=== PATIENT | female | born 1985 | race Caucasian/White ===

== ENCOUNTER → 2017-02-20 | Outpatient (CLI) | payer OTHER ==
[~2017-02-20] MED LIST: PRENTAB26 PO
== END | disposition home or self-care (01) ==
LOC: C.PAPS 11:17
PROVIDERS: ATTEND Obstetrics & Gynecology
DX: Z12.4 Encounter for screening for malignant neoplasm of cervix (principal); R87.612 Low grade squamous intraepithelial lesion on cytologic smear of cervix (LGSIL)

== ENCOUNTER → 2017-03-16 | Outpatient (CLI) | payer OTHER | END | disposition home or self-care (01) | LOC: C.PATHSPEC 13:06 | PROVIDERS: ATTEND Obstetrics & Gynecology | DX: N87.0 Mild cervical dysplasia (principal) ==

== ENCOUNTER 2017-07-21 18:19 | Emergency (ER) | payer OTHER ==
[~2017-07-21] VITALS: Ht 160 cm; Wt 60.6 kg
[2017-07-21 18:36] VITALS: Ht 160 cm; Wt 60.6 kg
[2017-07-21] MEDS ORDERED: IBUPROFEN 600 MG TAB PO STA (18:50)
[2017-07-21] MEDS ORDERED: SODIUM CHLORIDE 0.9% 1000ML 1,000 ML IV STA (18:50)
[2017-07-21] MEDS ORDERED: ACETAMINOPHEN 500 MG TAB PO STA (18:50)
[2017-07-21] MEDS ORDERED: ONDANSETRON INJ 2 MG/ML 2 ML VIAL IV STA (18:50)
[2017-07-21] MEDS ORDERED: BENZONATATE 100MG CAP PO ONE (19:00)
--- NOTE | 2017-07-21 19:00 | EMERGENCY ROOM VISIT NOTE ---
History Report prepared by Sahra: Marek Kaufman Under the Supervision of: Dr. Nikolai Proctor M.D. First contact with patient: 18:44 Chief Complaint: FLU LIKE SX Stated Complaint: FEVER, CHILLS, SWEATS, ACHES, COUGHING UP MUCUS History of Present Illness The patient is a 32 year old female who presents to the Emergency Room with complaints of worsening flu-like symptoms that began 5 days ago. Patient has associated symptoms of a productive cough, chills, body aches, joint aches, fever, sore throat, fatigue, and ear discomfort. She states her ears feel "pressurized", but not painful. She adds that she had a syncopal episode yesterday. She states she had diarrhea 4 days ago--this has resolved. She states she has been drinking fluids regularly. She denies getting a flu shot this year. She states her two kids at home are "just as sick as she is". She adds that they both recently tested negative for the flu. Patient adds that she has taken Motrin and Tylenol but it has not relieved her symptoms. She adds that she took Mucinex 2 hours ago. Patient denies painful urination. She states she has not been urinating as much as usual. She states it is unlikely that she is . She adds that she is on control. Patient denies a history of lung, liver, kidney, or spleen problems. Patient adds that an complaint investigations officer was diagnosed with bronchitis recently. Pertinent past medical history includes bipolar disorder. She states that she takes Lamictal. Source of History: patient Onset: 5 days ago Timing: worsening Associated Symptoms: + chills, + sorethroat, + cough (Productive), + fatigue Note: Patient has body aches, joint aches, and ear discomfort. Review of Systems See HPI for pertinent positives & negatives. A total of 10 systems reviewed and were otherwise negative. 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 Social History Smoking Status: Never Smoker Alcohol Use: occasionally Housing Status: lives with family Occupation Status: employed Current/Historical Medications Scheduled Control Pills ( Control Pills), 1 TAB PO DAILY Lamotrigine (Lamictal), 200 MG PO HS Scheduled PRN Benzonatate (Tessalon Perles), 100-200 MG PO TID PRN for Cough Allergies Coded Allergies: No Known Allergies (Verified Allergy, Unknown, 03/19/06) Physical Exam Vital Signs Date Time Temp Pulse Resp B/P (MAP) Pulse Ox O2 Delivery O2 Flow Rate FiO2 07/21/17 20:56 85 18 101/59 99 07/21/17 19:59 37.9 89 18 96/48 99 Room Air 07/21/17 18:36 39.0 100 18 102/63 99 Room Air Physical Exam GENERAL: Patient is in no acute distress. HEENT: No acute trauma, normocephalic atraumatic, mucous membranes moist, moderate nasal congestion, no scleral icterus, TMs clear bilaterally, no throat erythema or exudate. NECK: No stridor, no adenopathy, no meningismus, trachea is midline. LUNGS: Clear to auscultation bilaterally, no wheeze, no rhonchi, breath sounds equal, wet cough noted. HEART: Without murmurs gallops or rubs, regular rate and rhythm. ABDOMEN: Soft, nontender, bowel sounds positive, no hernias, no peritonitis. EXTREMITIES: No cyanosis or edema, full range of motion of all the joints without pain or difficulty, no signs for acute trauma. NEUROLOGIC: Oriented x 3, no acute motor or sensory deficits, no focal weakness. SKIN: No rash, no jaundice, no diaphoresis. Medical Decision & Procedures ER Provider Diagnostic Interpretation: Radiology results as stated below per my review and radiologist interpretation: CHEST ONE VIEW PORTABLE HISTORY: cough, fever COMPARISON: None. FINDINGS: The lungs are clear. Cardiac silhouette is normal in size. No pleural effusions. No pneumothorax. Prior internal fixation of an old left clavicle fracture. The hardware is intact. IMPRESSION: No acute process. Electronically signed by: Micah Velasquez M.D. 07/21/2017 7:07 PM Laboratory Results 07/21/17 19:10 07/21/17 19:10 Test 07/21/17 19:10 Red Blood Count 4.00 M/uL (4.2-5.4) Mean Corpuscular Volume 91.3 fL (80-100) Mean Corpuscular Hemoglobin 32.3 pg (25-34) Mean Corpuscular Hemoglobin Concent 35.3 g/dl (32-36) RDW Standard Deviation 41.6 fL (36.4-46.3) RDW Coefficient of Variation 12.3 % (11.5-14.5) Mean Platelet Volume 10.3 fL (7.4-10.4) Anion Gap 6.0 mmol/L (3-11) Est Creatinine Clear Calc Drug Dose 85.0 ml/min Estimated GFR () 114.7 Estimated GFR (Non- 98.9 BUN/Creatinine Ratio 8.3 (10-20) Calcium Level 8.6 mg/dl (8.5-10.1) Laboratory results reviewed by me. Medications Administered Medications (Trade) Dose Ordered Sig/Gordon Route Start Time Stop Time Status Last Admin Dose Admin Ibuprofen (Motrin Tab) 600 mg NOW STAT PO 07/21/17 18:50 07/21/17 18:54 DC 07/21/17 19:03 600 MG Acetaminophen (Tylenol Tab) 1,000 mg NOW STAT PO 07/21/17 18:50 07/21/17 18:54 DC 07/21/17 19:04 1,000 MG Sodium Chloride 1,000 ml @ 999 mls/hr Q1H1M STAT IV 07/21/17 18:50 07/21/17 19:50 DC 07/21/17 19:04 999 MLS/HR Ondansetron HCl (Zofran Inj) 4 mg NOW STAT IV 07/21/17 18:50 07/21/17 18:54 DC 07/21/17 19:03 4 MG Benzonatate (Tessalon Perles Cap) 100 mg NOW ONCE PO 07/21/17 19:00 07/21/17 19:01 DC 07/21/17 19:03 100 MG ED Course 1843: The patient was evaluated in room C7. A complete history and physical exam was performed. 1850: Zofran Inj 4mg IV, Sodium Chloride 1000 ml @ 999 mls/hr IV, Acetaminophen 1000mg PO, Motrin Tab 600mg PO 1900: Benzonatate 100mg PO 2020: Reevaluated the patient. Discussed results and discharge instructions. She verbalized understanding and agreement. The patient is ready for discharge. Medical Decision Differential Diagnosis: Influenza or flu-like illness, dehydration, otitis media, tonsillitis, sinusitis , and pneumonia. There is no leukocytosis or concerning anemia. No significant electrolyte abnormality or kidney failure. Chest film does not show pneumonia. The patient received IV saline, oral Tessalon, oral Motrin and oral Tylenol. She received IV Zofran. The patient feels markedly improved. She appears to have a flulike illness. She is not a candidate for Tamiflu as she has been sick for 5 days. She is not toxic. Her fever has decreased since being treated here, her tachycardia has improved. She will be discharged with Tessalon pearls for cough, Motrin/ Tylenol for fever and aches, hydration and rest will be encouraged. If worsening, she can return. Medication Reconcilliation Current Medication List: was personally reviewed by me Blood Pressure Screening Patient's blood pressure: Normal blood pressure Blood pressure disposition: Did not require urgent referral Impression Primary Impression: Influenza-like illness Scribe Attestation The scribe's documentation has been prepared under my direction and personally reviewed by me in its entirety. I confirm that the note above accurately reflects all work, treatment, procedures, and medical decision making performed by me. Departure Information Dispostion Home / Self-Care Prescriptions Benzonatate (TESSALON PERLES) 100 Mg Cap 100-200 MG PO TID Y for Cough, #20 CAP Prov: Nikolai Proctor M.D. 07/21/17 Referrals No Doctor, Assigned (PCP) Forms HOME CARE DOCUMENTATION FORM, IMPORTANT VISIT INFORMATION Patient Instructions My [facility] Additional Instructions tessalon perles 1-2 tab up to 3x per day for cough rest fluids motrin and or tylenol for aches and fever return if worsening imaging and lab testing was all ok
--- NOTE | 2017-07-21 19:09 | DIAGNOSTIC IMAGING REPORT ---
CHEST ONE VIEW PORTABLE HISTORY: cough, fever COMPARISON: None. FINDINGS: The lungs are clear. Cardiac silhouette is normal in size. No pleural effusions. No pneumothorax. Prior internal fixation of an old left clavicle fracture. The hardware is intact. IMPRESSION: No acute process. Electronically signed by: Micah Velasquez M.D. 07/21/2017 7:07 PM Dictated Date/Time: 07/21/2017 7:07 PM
[2017-07-21 19:21] LABS: HEMATOCRIT 36.5 % (37-47); HEMOGLOBIN 12.9 g/dL (12.0-16.0); MEAN CELL VOLUME 91.3 fL (80-100); MEAN CORPUSCULAR HEMOGLOBIN 32.3 pg (25-34); MEAN CORPUSCULAR HGB CONC 35.3 g/dl (32-36); MEAN PLATELET VOLUME 10.3 fL (7.4-10.4); PLATELET COUNT 151 K/uL (130-400); RED CELL DISTRIBUTION WIDTH CV 12.3 % (11.5-14.5); RED CELL DISTRIBUTION WIDTH SD 41.6 fL (36.4-46.3); WHITE BLOOD COUNT 6.87 K/uL (4.8-10.8)
[2017-07-21 19:39] LABS: CALCIUM 8.6 mg/dl (8.5-10.1); CREATININE 0.8 mg/dl (0.60-1.20); POTASSIUM 3.7 mmol/L (3.5-5.1)
[2017-07-21 19:59] VITALS: TEMP 37.9
[2017-07-21] MEDS ORDERED: LAMO200T35 PO (20:36)
[2017-07-21] MEDS ORDERED: BCPILLS PO (20:36)
[2017-07-21] MEDS ORDERED: BENZ100C18 PO (20:46)
[2017-07-21 20:56] VITALS: BP 101/59; PULSE 85; O2SAT 99
== END 2017-07-21 20:57 | disposition home or self-care (01) ==
LOC: C.EDB 18:20 → C.EDC 20:57
DX: R05 Cough (principal); M25.50 Pain in unspecified joint; R50.9 Fever, unspecified; J02.9 Acute pharyngitis, unspecified; R53.83 Other fatigue; F31.9 Bipolar disorder, unspecified; Z79.899 Other long term (current) drug therapy

== ENCOUNTER → 2017-09-06 | Outpatient (CLI) | payer OTHER ==
[~2017-09-06] MED LIST changes: +BCPILLS PO; +LAMO200T35 PO; -PRENTAB26 PO
== END | disposition home or self-care (01) ==
LOC: C.LABBFT 16:38
PROVIDERS: ATTEND Psychiatry & Neurology Psychiatry
DX: Z79.899 Other long term (current) drug therapy (principal)

== ENCOUNTER → 2017-10-02 | Outpatient (CLI) | payer OTHER | END | disposition home or self-care (01) | LOC: C.PAPS 12:06 | PROVIDERS: ATTEND Obstetrics & Gynecology | DX: N87.0 Mild cervical dysplasia (principal); R87.610 Atypical squamous cells of undetermined significance on cytologic smear of cervix (ASC-US) ==

== ENCOUNTER → 2017-10-02 | Outpatient (CLI) | payer OTHER | END | disposition home or self-care (01) | LOC: C.PATHSPEC 10:51 | PROVIDERS: ATTEND Obstetrics & Gynecology | DX: N87.0 Mild cervical dysplasia (principal); R87.610 Atypical squamous cells of undetermined significance on cytologic smear of cervix (ASC-US) ==

== ENCOUNTER → 2018-01-29 | Outpatient (CLI) | payer OTHER | END | disposition home or self-care (01) | LOC: C.LABBFT 07:31 | PROVIDERS: ATTEND Psychiatry & Neurology Psychiatry | DX: Z79.899 Other long term (current) drug therapy (principal); J02.9 Acute pharyngitis, unspecified ==

== ENCOUNTER 2021-10-09 08:15 | Inpatient (IN) ==
--- NOTE | 2021-10-09 08:50 | Emergency Department Note ---
History of Present Illness General Chief complaint: Cardiac Assessment Stated complaint: SOB,LT SIDE CHEST PAIN Time Seen by Provider: 10/09/21 08:26 History of Present Illness Maximum Pain Intensity: 8 This 36-year-old female patient presents to the emergency department today for evaluation of left-sided chest pain. The patient is 4 days status post bronchoscopy. She states she was feeling sore and having some chest pain and shortness of breath on Sunday and , but was beginning to feel better on Sunday. Yesterday, she developed worsening chest pain and shortness of br eath which she states felt similar in nature to what she experienced immediately after the procedure. She states she is still coughing up some dark brown blood which she was told is to be expected. No bright red blood. She has not had a fever. She denies any abdominal pain, nausea, vomiting. The pain is in the left lateral anterior region of the chest. She rates her pain 8/10 describes it as aching and sharp. She has not taken any medications for her symptoms. The pain is better with sitting or standing upright, worsens with lying flat. Home Medications Medication Instructions Recorded Confirmed Type lamotrigine 200 mg tablet 200 mg PO HS tab 08/08/19 10/05/21 History lorazepam 1 mg tablet 0.5 - 1 mg PO HS PRN #30 tab 08/08/19 10/05/21 History risperidone 0.5 mg tablet 0.5 mg PO HS tab 08/08/19 10/05/21 History norethindrone 1.5 mg-ethinyl 1 tab PO QAM 05/11/21 10/05/21 History estradiol 30 mcg(21)/iron 75 mg(7) tablet (Dmitry Fe 1.5/30 (28)) famotidine 20 mg tablet 20 mg PO HS #30 tab 08/16/21 10/05/21 Rx pantoprazole 40 mg tablet,delayed 40 mg PO QAM 09/29/21 10/05/21 History release Allergies Allergy/AdvReac Type Severity Reaction Status Date / Time No Known Allergies Allergy Unknown Verified 10/05/21 09:41 Past Med/Surg History Medical History (Updated 10/10/21 @ 08:49 by Froylan Espinoza MD) Anxiety Asthma Bipolar disorder Depression Esophageal reflux Iatrogenic pneumothorax Lymphadenopathy Mild dysplasia of cervix (MIREYA I) Multiple pulmonary nodules Panic disorder Surgical History H/O colonoscopy History of colposcopy with cervical biopsy History of esophagogastroduodenoscopy (EGD) History of open reduction and internal fixation (ORIF) procedure left clavicle fx--hardware in place History of tooth extraction History of wisdom tooth extraction S/P ovarian cystectomy Family History Mother Substance abuse Depression Suicide Father Engel esophagus Hypertension Other Anxiety disorder Arthritis Asthma Bipolar disorder Cataract Colorectal cancer Esophageal reflux Gallbladder disease Heart disease Hypothyroidism Kidney disease Murmur, cardiac No family history of adverse response to anesthesia Ovarian cyst Thyroid disorder Denies family history of Breast cancer Social History Smoking Status: Never smoker Second Hand Exposure: No; Do You Dip or Chew Tobacco: No; Tobacco Cessation Education Requested by Patient: No Hx Alcohol Use: Yes Alcohol type: wine Alcohol Intake Frequency: 4 or More x per/Week Hx Substance Use: No Preferred Language: Gabonese Communication Ability: Effective Rail Manager Required: No Beliefs That Will Affect Care: None marital status: Current Living Situation: Significant Other Current Living Situation Comment: Lives with and 2 kids current occupational status: employed current occupation: [employer] Other Information That Helps Us Care for You: No Feels Safe at Home: Yes Safety Concerns: Feels Safe At This Time caffeine: Yes Dental Care, Regularly: Yes Physical Activity Frequency: 1-2 Times per Week Seatbelt Use: always Sunscreen Use: Yes Assistive Devices: Glasses Review of Systems A total of 10 systems reviewed and were otherwise negative Physical Exam Vital Signs Vital Signs - 24 hr 10/09/21 08:18 10/09/21 08:30 10/09/21 08:34 Temperature 36.1 C L Temperature Source Temporal Artery Scan Pulse Rate 81 79 Pulse Rate [Apical] Pulse Rate from SpO2 Sensor 79 Respiratory Rate 20 17 Respiratory Effort / Characteristics Spontaneous Accessory Muscle Use Labored Respiratory Depth Normal Blood Pressure 112/76 Blood Pressure [Right Arm] Blood Pressure Mean 88 Blood Pressure Mean [Right Arm] Pulse Oximetry 99 97 99 Oxygen Delivery Method Room Air Room Air Sepsis Recent Fever Within 48 Hours No Sepsis New/Unexplained Change in Mental Status No Sepsis Action Taken by Nursing No Action Required 10/09/21 08:36 10/09/21 08:45 10/09/21 08:47 Temperature Temperature Source Pulse Rate 76 72 Pulse Rate [Apical] 74 Pulse Rate from SpO2 Sensor Respiratory Rate 23 20 15 Respiratory Effort / Characteristics Respiratory Depth Blood Pressure 111/71 Blood Pressure [Right Arm] 111/71 Blood Pressure Mean 84 Blood Pressure Mean [Right Arm] 84 Pulse Oximetry 99 Oxygen Delivery Method Room Air Sepsis Recent Fever Within 48 Hours Sepsis New/Unexplained Change in Mental Status Sepsis Action Taken by Nursing 10/09/21 09:09 10/09/21 09:15 10/09/21 09:30 Temperature Temperature Source Pulse Rate 71 87 81 Pulse Rate [Apical] Pulse Rate from SpO2 Sensor 71 82 84 Respiratory Rate 16 24 15 Respiratory Effort / Characteristics Respiratory Depth Blood Pressure 115/70 121/87 Blood Pressure [Right Arm] Blood Pressure Mean 85 98 Blood Pressure Mean [Right Arm] Pulse Oximetry 99 99 98 Oxygen Delivery Method Sepsis Recent Fever Within 48 Hours Sepsis New/Unexplained Change in Mental Status Sepsis Action Taken by Nursing 10/09/21 09:45 10/09/21 10:00 10/09/21 10:14 Temperature Temperature Source Pulse Rate 74 79 83 Pulse Rate [Apical] Pulse Rate from SpO2 Sensor 74 75 83 Respiratory Rate 20 18 17 Respiratory Effort / Characteristics Respiratory Depth Blood Pressure 124/78 128/89 Blood Pressure [Right Arm] Blood Pressure Mean 93 102 Blood Pressure Mean [Right Arm] Pulse Oximetry 98 97 97 Oxygen Delivery Method Sepsis Recent Fever Within 48 Hours Sepsis New/Unexplained Change in Mental Status Sepsis Action Taken by Nursing 10/09/21 10:15 10/09/21 10:20 10/09/21 10:22 Temperature Temperature Source Pulse Rate 89 47 L 54 L Pulse Rate [Apical] Pulse Rate from SpO2 Sensor 87 48 L 53 L Respiratory Rate 21 15 17 Respiratory Effort / Characteristics Respiratory Depth Blood Pressure 71/46 L 79/48 L Blood Pressure [Right Arm] Blood Pressure Mean 54 58 Blood Pressure Mean [Right Arm] Pulse Oximetry 95 95 92 Oxygen Delivery Method Sepsis Recent Fever Within 48 Hours Sepsis New/Unexplained Change in Mental Status Sepsis Action Taken by Nursing 10/09/21 10:24 10/09/21 10:29 10/09/21 10:30 Temperature Temperature Source Pulse Rate 56 L 49 L 50 L Pulse Rate [Apical] Pulse Rate from SpO2 Sensor 56 L 49 L Respiratory Rate 23 20 15 Respiratory Effort / Characteristics Respiratory Depth Blood Pressure 103/57 L 79/40 L 78/45 L Blood Pressure [Right Arm] Blood Pressure Mean 72 53 56 Blood Pressure Mean [Right Arm] Pulse Oximetry 95 98 Oxygen Delivery Method Sepsis Recent Fever Within 48 Hours Sepsis New/Unexplained Change in Mental Status Sepsis Action Taken by Nursing 10/09/21 10:31 10/09/21 10:37 10/09/21 10:45 Temperature Temperature Source Pulse Rate 51 L 65 67 Pulse Rate [Apical] Pulse Rate from SpO2 Sensor 52 L 68 67 Respiratory Rate 15 19 17 Respiratory Effort / Characteristics Respiratory Depth Blood Pressure 88/50 L 97/58 L Blood Pressure [Right Arm] Blood Pressure Mean 62 71 Blood Pressure Mean [Right Arm] Pulse Oximetry 98 99 99 Oxygen Delivery Method Sepsis Recent Fever Within 48 Hours Sepsis New/Unexplained Change in Mental Status Sepsis Action Taken by Nursing 10/09/21 10:48 10/09/21 11:00 10/09/21 11:15 Temperature Temperature Source Pulse Rate 62 65 68 Pulse Rate [Apical] Pulse Rate from SpO2 Sensor 61 64 67 Respiratory Rate 15 17 19 Respiratory Effort / Characteristics Respiratory Depth Blood Pressure 106/67 109/68 Blood Pressure [Right Arm] Blood Pressure Mean 80 81 Blood Pressure Mean [Right Arm] Pulse Oximetry 100 100 100 Oxygen Delivery Method Sepsis Recent Fever Within 48 Hours Sepsis New/Unexplained Change in Mental Status Sepsis Action Taken by Nursing 10/09/21 11:35 Temperature Temperature Source Pulse Rate 64 Pulse Rate [Apical] Pulse Rate from SpO2 Sensor 64 Respiratory Rate 27 H Respiratory Effort / Characteristics Respiratory Depth Blood Pressure 116/74 Blood Pressure [Right Arm] Blood Pressure Mean 88 Blood Pressure Mean [Right Arm] Pulse Oximetry 100 Oxygen Delivery Method Sepsis Recent Fever Within 48 Hours Sepsis New/Unexplained Change in Mental Status Sepsis Action Taken by Nursing VITALS: Vitals are noted on the nurse's note and reviewed by myself. Vital signs stable. GENERAL: This is a 36-year-old white for, in no acute distress, nondiaphoretic, well-developed well-nourished. SKIN: The skin was without rashes, erythema, edema, or bruising. There is no tenting of the skin. Capillary refill less than 2 seconds. HEAD: Normocephalic atraumatic. EYES: Conjunctivae without injection, sclerae without icterus. NECK: Supple without nuchal rigidity. No lymphadenopathy. Cervical spine is nontender. No JVD. HEART: Regular rate and rhythm without murmurs gallops or rubs. LUNGS: Clear to auscultation bilaterally without wheezes, rales or rhonchi. No retractions or accessory muscle use. ABDOMEN: Positive bowel sounds x 4. Soft, nontender, without masses or organom egaly. Davis sign negative. No guarding or rebound tenderness. MUSCULOSKELETAL: No muscle atrophy, erythema, or edema noted. Full range of motion without joint tenderness in all extremities. No tenderness to palpation. Normal gait. Strength 5/5 throughout. NEURO: Patient was alert and oriented to person place and time. No focal neurological deficits. Course Course The patient was seen and evaluated as above. Previous medical records reviewed. An order was placed for continuous cardiac monitoring. The monitor shows a normal sinus rhythm at a rate of 81 bpm. IV access obtained, labs drawn. Imaging performed and reviewed by myself and radiologist as noted. Labs reviewed by myself. I discussed the findings with the patient at bedside. I consulted with Dr. Boland, configuration specialist to perform the procedure. He did agree to see the patient in the emergency department and place a chest tube. Please see his dictation regarding this procedure. He did request the patient be admitted to the hospitalist service. I discussed the case with the manager nc and spoke with Pat Graff PA-C with the [facility] hospitalist service. She did agree to see and evaluate the patient for admission Administered Medications Acetaminophen (Acetaminophen 325 Mg Tab) 650 mg PO Q6H NAVA Stop: 11/08/21 13:59 Last Admin: 10/10/21 07:20 Dose: 650 mg Documented by: [id number] Admin: 10/10/21 00:51 Dose: 650 mg Documented by: [id number] Admin: 10/09/21 19:32 Dose: 650 mg Documented by: [id number] Admin: 10/09/21 14:26 Dose: 650 mg Documented by: [id number] Famotidine (Famotidine 20 Mg Tab) 20 mg PO HS [facility] Stop: 11/08/21 20:59 Last Admin: 10/09/21 20:36 Dose: 20 mg Documented by: [id number] Hydromorphone HCl (Hydromorphone Inj 1 Mg/Ml Syringe) 1 mg IV Q4H PRN PRN Reason: Severe Pain (7,8,9,10) on NRS Stop: 10/23/21 15:02 Last Admin: 10/10/21 11:45 Dose: 1 mg Documented by: [id number] Admin: 10/10/21 06:07 Dose: 1 mg Documented by: [id number] Admin: 10/10/21 02:25 Dose: 1 mg Documented by: [id number] Admin: 10/09/21 22:34 Dose: 1 mg Documented by: [id number] Admin: 10/09/21 19:37 Dose: 1 mg Documented by: [id number] Ketorolac Tromethamine (Ketorolac Tromethamine 15 Mg/Ml Vial) 10 mg IV Q6H NAVA Stop: 10/15/21 08:29 Last Admin: 10/10/21 08:30 Dose: 10 mg Documented by: [id number] Lamotrigine (Lamotrigine 100 Mg Tab) 200 mg PO [facility] Stop: 11/08/21 20:59 Last Admin: 10/09/21 20:36 Dose: 200 mg Documented by: [id number] Lorazepam (Lorazepam 0.5 Mg Tab) 0.5 mg PO Q6H PRN PRN Reason: Anxiety Stop: 11/08/21 13:23 Last Admin: 10/10/21 02:25 Dose: 0.5 mg Documented by: [id number] Admin: 10/09/21 20:35 Dose: 0.5 mg Documented by: [id number] Miscellaneous (Dmitry Fe - Oral Contraceptive - Order Awaiting Action) 1 ea N/A QS [facility] Stop: 11/08/21 15:59 Last Admin: 10/10/21 09:20 Dose: Not Given Documented by: [id number] Admin: 10/09/21 23:23 Dose: Not Given Documented by: [id number] Admin: 10/09/21 15:58 Dose: Not Given Documented by: [id number] Ondansetron HCl (Ondansetron Inj 2 Mg/Ml 2 Ml Vial) 4 mg IV Q6H PRN PRN Reason: Nausea Stop: 11/08/21 13:23 Last Admin: 10/10/21 07:29 Dose: 4 mg Documented by: [id number] Pantoprazole Sodium (Pantoprazole 40 Mg Tab) [facility] [place] Stop: 11/09/21 08:59 Last Admin: 10/10/21 09:22 Dose: 40 mg Documented by: [id number] Risperidone (Risperidone 0.5 Mg Tablet) 0.5 mg PO HS NAVA Stop: 11/08/21 20:59 Last Admin: 10/09/21 20:36 Dose: 0.5 mg Documented by: [id number] Discontinued Medications Hydromorphone HCl (Hydromorphone Inj 0.5 Mg/0.5 Ml Syr) 0.5 mg IV Q4H PRN PRN Reason: Severe Pain (7,8,9,10) on NRS Stop: 10/23/21 15:02 Last Admin: 10/09/21 15:30 Dose: 0.5 mg Documented by: [id number] Ketorolac Tromethamine (Ketorolac Tromethamine 15 Mg/Ml Vial) 10 mg IV NOW ONE Stop: 10/09/21 17:15 Last Admin: 10/09/21 17:28 Dose: 10 mg Documented by: [id number] Lidocaine HCl (Lidocaine 1% Local 20 Ml Vial) 10 ml INFIL NOW ONE Stop: 10/09/21 09:37 Last Admin: 10/09/21 10:16 Dose: 10 ml Documented by: [id number] Midazolam HCl (Midazolam Hcl 1 Mg/Ml 2ml Vial) 1 mg IV NOW STA Stop: 10/09/21 09:37 Last Admin: 10/09/21 10:08 Dose: 1 mg Documented by: [id number] Morphine Sulfate (Morphine Sulfate 2 Mg/Ml Carp) 1 mg IV NOW STA Stop: 10/09/21 09:37 Last Admin: 10/09/21 10:15 Dose: 1 mg Documented by: [id number] Morphine Sulfate (Morphine Sulfate 2 Mg/Ml Carp) 1 mg IV NOW STA Stop: 10/09/21 10:35 Last Admin: 10/09/21 10:18 Dose: 1 mg Documented by: [id number] Morphine Sulfate (Morphine Sulfate 4 Mg/Ml 1 Ml Carp\Vial) 4 mg IV NOW STA Stop: 10/09/21 11:54 Last Admin: 10/09/21 12:05 Dose: 4 mg Documented by: [id number] Morphine Sulfate (Morphine Sulfate 2 Mg/Ml Carp) 2 mg IV Q30M PRN PRN Reason: Pain Stop: 10/23/21 13:23 Last Admin: 10/09/21 13:52 Dose: 2 mg Documented by: [id number] Ondansetron HCl (Ondansetron Inj 2 Mg/Ml 2 Ml Vial) Confirm Administered Dose 4 mg .ROUTE .STK-MED ONE Stop: 10/09/21 10:22 Last Admin: 10/09/21 15:56 Dose: Not Given Documented by: [id number] Ondansetron HCl (Ondansetron Inj 2 Mg/Ml 2 Ml Vial) 4 mg IV NOW STA Stop: 10/09/21 11:54 Last Admin: 10/09/21 12:04 Dose: 4 mg Documented by: [id number] Medical Decision Making Differential Diagnosis Reactive airway disease, pneumonia, pneumothorax, COPD, CHF, infections, cardiac ischemia, pulmonary embolism, musculoskeletal, gastrointestinal, as well as other pathologies. Medical Records Attestation: I reviewed the patient's medical records. Home Medications Current Medication List: was personally reviewed by me Laboratory Data Attestation: I reviewed the patient's lab results. No leukocytosis, anemia, thrombocytopenia. Renal, hepatic function, and electrolytes without significant abnormality. COVID-19 testing negative Result diagrams: 10/10/21 05:58 10/10/21 05:58 Lab Results 10/09/21 10/09/21 10/09/21 Range/Units 08:35 08:35 09:55 WBC 6.55 (4.8-10.8) K/uL RBC 4.14 L (4.2-5.4) M/uL Hgb 13.6 (12.0-16.0) g/dL Hct 38.5 (37-47) % MCV 93.0 (80-100) fL MCH 32.9 (25-34) pg MCHC 35.3 (32-36) g/dL RDW Std Deviation 41.0 (36.4-46.3) fL RDW Coeff of [place] 12.1 (11.5-14.5) % Plt Count 240 (130-400) K/uL MPV 10.6 H (7.4-10.4) fL Immature Gran % (Auto) 0.2 % Neut % (Auto) 66.9 % Lymph % (Auto) 21.1 % [place] % (Auto) 7.6 % Eos % (Auto) 3.7 % Baso % (Auto) 0.5 % Neut # (Auto) 4.39 (1.4-6.5) K/uL Lymph # (Auto) 1.38 (1.2-3.4) K/uL [place] # (Auto) 0.50 (0.11-0.59) K/uL Eos # (Auto) 0.24 (0-0.5) K/uL Baso # (Auto) 0.03 (0-0.2) K/uL Immature Gran # (Auto) 0.01 (0.00-0.02) K/uL Sodium 136 (136-145) mmol/L Potassium 4.1 (3.5-5.1) mmol/L Chloride 104 (98-107) mmol/L Carbon Dioxide 22 (21-32) mmol/L Anion Gap 10 (3-11) BUN 11 (6-23) mg/dl Creatinine 0.91 (0.6-1.2) mg/dl Est Cr Clr Drug Dosing 82.2 ml/min Est GFR ( Amer) 95.4 ml/min Est GFR (Non-Af Amer) 82.3 ml/min BUN/Creatinine Ratio 12.1 (10-20) Glucose 85 (70-99(Fasting)) mg/dl Calcium 9.9 (8.5-10.1) mg/dl Total Bilirubin 0.7 (0.2-1.0) mg/dl AST 32 (13-39) U/L ALT 46 (7-52) U/L Alkaline Phosphatase 50 (34-104) U/L Total Protein 8.3 (6.0-8.3) gm/dl Albumin 4.6 (3.4-5.0) gm/dl Globulin 3.7 (2.5-4.0) gm/dl Albumin/Globulin Ratio 1.2 (0.9-2) SARS-CoV-2, RNA, NAAT (NEGATIVE) 10/09/21 Range/Units 10:50 WBC (4.8-10.8) K/uL RBC (4.2-5.4) M/uL Hgb (12.0-16.0) g/dL Hct (37-47) % MCV (80-100) fL MCH (25-34) pg MCHC (32-36) g/dL RDW Std Deviation (36.4-46.3) fL RDW Coeff of [place] (11.5-14.5) % Plt Count (130-400) K/uL MPV (7.4-10.4) fL Immature Gran % (Auto) % Neut % (Auto) % Lymph % (Auto) % [place] % (Auto) % Eos % (Auto) % Baso % (Auto) % Neut # (Auto) (1.4-6.5) K/uL Lymph # (Auto) (1.2-3.4) K/uL [place] # (Auto) (0.11-0.59) K/uL Eos # (Auto) (0-0.5) K/uL Baso # (Auto) (0-0.2) K/uL Immature Gran # (Auto) (0.00-0.02) K/uL Sodium (136-145) mmol/L Potassium (3.5-5.1) mmol/L Chloride (98-107) mmol/L Carbon Dioxide (21-32) mmol/L Anion Gap (3-11) BUN (6-23) mg/dl Creatinine (0.6-1.2) mg/dl Est Cr Clr Drug Dosing ml/min Est GFR ( Amer) ml/min Est GFR (Non-Af Amer) ml/min BUN/Creatinine Ratio (10-20) Glucose (70-99(Fasting)) mg/dl Calcium (8.5-10.1) mg/dl Total Bilirubin (0.2-1.0) mg/dl AST (13-39) U/L ALT (7-52) U/L Alkaline Phosphatase (34-104) U/L Total Protein (6.0-8.3) gm/dl Albumin (3.4-5.0) gm/dl Globulin (2.5-4.0) gm/dl Albumin/Globulin Ratio (0.9-2) SARS-CoV-2, RNA, NAAT NEGATIVE (NEGATIVE) Imaging Data Radiologist's Impression: Chest X-Ray 10/09/21 08:34 XR chest 2V PA/lateral HISTORY: 36 years-old Female left chest pain, sob, s/p bronchoscopy acute a typical chest COMPARISON: Chest radiograph 10/05/2021 TECHNIQUE: PA and lateral views of the chest FINDINGS: The cardiomediastinal and hilar silhouettes are within normal limits. There is a new left-sided pneumothorax with pleural separation of 4.2 cm at the apex and 1.8 cm laterally. The right lung is clear. No pleural effusion, airspace consolidation or overt pulmonary edema. The bones appear grossly intact. Left clavicular ORIF hardware. IMPRESSION: Left-sided pneumothorax with 4.2 cm of pleural separation. ACT 112: Negative or not required by law. The above report was generated using voice recognition software. It may contain grammatical, syntax or spelling errors. Electronically signed by: Liam Young M.D. 10/09/2021 9:20 AM Chest X-Ray 10/09/21 10:25 XR chest 1V portable HISTORY: 36 years-old Female post-chest tube status post placement of a left- sided chest tube COMPARISON: Chest radiographs of same day at 9:12 AM TECHNIQUE: AP view of the chest FINDINGS: Status post placement of a pigtail catheter projected over the left midlung. There is expansion of the left lung. No definite residual pneumothorax identified. The cardiomediastinal and hilar silhouettes are within normal limits. No pleural effusion or overt pulmonary edema. Bones appear grossly intact. Left clavicular ORIF hardware. IMPRESSION: Status post placement of a left-sided chest tube. No residual pneumothorax identified. ACT 112: Negative or not required by law. The above report was generated using voice recognition software. It may contain grammatical, syntax or spelling errors. Electronically signed by: Liam Young M.D. 10/09/2021 10:46 AM ECG Data Attestation: I personally reviewed and interpreted this ECG as follows: Indication: + chest pain Rate (beats per minute): 66 Rhythm: + normal sinus ECG [place]: + Normal ECG ST segments: no ST depression, no ST elevation or no T-wave inversions Comparison ECG Date: no prior available Blood Pressure Blood Pressure Findings: Normal blood pressure MDM Narrative This 36-year-old female patient presents to the emergency department today for evaluation of shortness of breath and neck/shoulder pain. The patient is 4 days status post bronchoscopy. She was found to have a 4.0 cm left-sided pneumothorax on ED work-up. Dr. Boland was consulted. He did place a pigtail chest tube. The patient will be admitted to the medicine service with pulm onology consultation. Please see hospitalist dictation regarding ongoing management care of this patient. The chart was completed utilizing Dragon Speech voice recognition software. Grammatical errors, random word insertions, pronoun errors, and incomplete sentences are an occasional consequence of this system due to software limitations, ambient noise, and hardware issues. Any formal questions or concerns about the content, text, or information contained within the body of this dictation should be directly addressed to the provider for clarification. Impression & Plan Pneumothorax, Shortness of breath, Chest pain Discharge Plan Visit Data Chief Complaint: Cardiac Assessment Stated Complaint: SOB,LT SIDE CHEST PAIN ED Provider: Jonatan Lopez ED Midlevel Provider: Liz Miller Discharge Problem: Pneumothorax, Shortness of breath, Chest pain Patient Disposition: Admitted As Inpatient Discharge Instructions Interventions: ED Discharge Assessment Last Done: 10/09/21 12:45 Discharge Problem: Pneumothorax Qualifiers: Pneumothorax type: postprocedural Qualified Code(s): J95.811 - Postprocedural pneumothorax Chest pain Qualifiers: Chest pain type: unspecified Qualified Code(s): R07.9 - Chest pain, unspecified
[2021-10-09 08:59] LABS: Basophils # (auto) 0.03 K/uL (0-0.2); Basophils % (auto) 0.5 %; Eosinophils # (auto) 0.24 K/uL (0-0.5); Eosinophils % (auto) 3.7 %; Hematocrit (blood only) 38.5 % (37-47); Hemoglobin 13.6 g/dL (12.0-16.0); Immature Granulocytes # (auto) 0.01 K/uL (0.00-0.02); Immature Granulocytes % (auto) 0.2 %; Lymphocytes # (auto) 1.38 K/uL (1.2-3.4); Lymphocytes % (auto) 21.1 %; Mean Corpuscular Hemoglobin 32.9 pg (25-34); Mean Corpuscular Hgb Conc 35.3 g/dL (32-36); Mean Platelet Volume 10.6 fL (7.4-10.4); Monocytes % (auto) 7.6 %; Neutrophils # (auto) 4.39 K/uL (1.4-6.5); Neutrophils % (auto) 66.9 %; Platelet Count 240 K/uL (130-400); RDW Coefficient of Variation 12.1 % (11.5-14.5); Red Blood Count 4.14 M/uL (4.2-5.4); White Blood Count 6.55 K/uL (4.8-10.8)
--- NOTE | 2021-10-09 09:21 | XRay Report ---
XR chest 2V PA/lateral HISTORY: 36 years-old Female left chest pain, sob, s/p bronchoscopy acute atypical chest COMPARISON: Chest radiograph 10/05/2021 TECHNIQUE: PA and lateral views of the chest FINDINGS: The cardiomediastinal and hilar silhouettes are within normal limits. There is a new left-sided pneum othorax with pleural separation of 4.2 cm at the apex and 1.8 cm laterally. The right lung is clear. No pleural effusion, airspace consolidation or overt pulmonary edema. The bones appear grossly intact . Left clavicular ORIF hardware. IMPRESSION: Left-sided pneumothorax with 4.2 cm of pleural separation. ACT 112: Negative or not required by law. The above report was generated using voice recognition software. It may contain grammatical, syntax o r spelling errors. Electronically signed by: Liam Young M.D. 10/09/2021 9:20 AM
[2021-10-09] MEDS ORDERED: LIDOCAINE 1% LOCAL 20 ML VIAL INFIL ONE (09:36)
[2021-10-09] MEDS ORDERED: MIDAZOLAM HCL 1 MG/ML 2ML VIAL IV STA (09:36)
[2021-10-09] MEDS ORDERED: MoRPHine SULFATE 2 MG/ML CARP IV STA ×2 (09:36→10:34)
[2021-10-09 10:02] LABS: Albumin Globulin Ratio 1.2 (0.9-2); Albumin Level 4.6 gm/dl (3.4-5.0); BUN Creatinine Ratio 12.1 (10-20); Bilirubin,Total 0.7 mg/dl (0.2-1.0); Calcium 9.9 mg/dl (8.5-10.1); Creatinine Clr Calc Pharmacy 82.2 ml/min; Est GFR (African American) 95.4 ml/min; Est GFR (Non-African American) 82.3 ml/min; Globulin 3.7 gm/dl (2.5-4.0); Total Protein 8.3 gm/dl (6.0-8.3)
[2021-10-09] MEDS ORDERED: ONDANSETRON INJ 2 MG/ML 2 ML VIAL ONE (10:21)
--- NOTE | 2021-10-09 10:47 | XRay Report ---
XR chest 1V portable HISTORY: 36 years-old Female post-chest tube status post placement of a left-sided chest tube COMPARISON: Chest radiographs of same day at 9:12 AM TECHNIQUE: AP view of the chest FINDINGS: Status post placement of a pigtail catheter projected over the left midlung. There is expansion of th e left lung. No definite residual pneumothorax identified. The cardiomediastinal and hilar silhouette s are within normal limits. No pleural effusion or overt pulmonary edema. Bones appear grossly intact . Left clavicular ORIF hardware. IMPRESSION: Status post placement of a left-sided chest tube. No residual pneumothorax identified. ACT 112: Negative or not required by law. The above report was generated using voice recognition software. It may contain grammatical, syntax o r spelling errors. Electronically signed by: Liam Young M.D. 10/09/2021 10:46 AM
[2021-10-09 10:49] LABS: Potassium 4.1 mmol/L (3.5-5.1)
--- NOTE | 2021-10-09 10:49 | Procedure Note ---
Procedure Note Date of Service October 09, 2021 Note Procedure: Pigtail chest tube insertion Ground Control Approach Technician: Dr. Tresa Boland Indication: Left-sided pneumothorax Consent: Signed by patient and verified with timeout prior to procedure Anesthesia: 1% lidocaine without epinephrine local, 1 mg of midazolam and 1 mg of morphine Procedure: Consent was verified and timeout performed. Appropriate imaging studies were reviewed prior to the procedure. Patient was placed in a seated position. Appropriate site above the diaphragm on the left midaxillary line fourth intercostal space for chest tube insertion was selected. The skin was prepped and draped in normal sterile fashion. Lidocaine was used for local analgesia. Fluid was aspirated via the finder needle. A small skin amara was made with the scalpel and the catheter over the needle apparatus was advanced over the rib into the pleural space. With the help of guidewire and Seldinger technique, 12 Somali pigtail catheter was inserted and connected to Pleur-evac. No air leak appreciated after that. Chest x-ray to follow The patient tolerated the procedure without obvious complication Complications: None Blood loss: None Coding CPT Codes Pulmonary/Thoracic - Pulmonary and Thoracic: 68387 Tube thoracostomy ([id number]) [employer] [facility] [employer] Procedure Codes (Charges) Pulmonary/Thoracic Procedure 1: Pulmonary and Thoracic: 94318 Tube thoracostomy
--- NOTE | 2021-10-09 10:49 | Pulmonary Consultation ---
Date of Consultation October 09, 2021 Assessment & Plan (1) Multiple pulmonary nodules: (2) LAD (lymphadenopathy), mediastinal: (3) Pneumothorax: --Left-sided pneumothorax Likely secondary to the transbronchial biopsy which the patient had done on 10/05/2021 S/p chest tube placement 10/09/2021, lung showed good expansion Continue with -20 suction --Abnormal chest CT with mediastinal lymphadenopathy Tree-in-bud opacities appreciated bilateral upper lobes as well as right middle lobe Subcarinal as well as right hilar lymphadenopathy S/p EBUS and transbronchial biopsies 10/05/2021 Preliminary diagnosis after talking with Dr. Conrad is inclining towards sarcoidosis. We will wait for the cultures to come back before deciding what should be the treatment The possibility for the above finding could be infectious versus autoimmune Infection --> bacterial typical versus atypical, fungal (no significant eosinophilia) Autoimmune-- >Sarcoidosis is high on the differential, hypersensitive pneumonitis given chickens is also possibility Patient states she had history ofRF positivewhen she was , right now she does not have any complaints regarding any joint stiffness Plan: Continue with -20 suction Pain medications We will plan to clamp the tube tomorrow and may be repeated chest x-ray after 4 hours and if the lungs are still up consideration of removal of the tube tomorrow or day after Please note the above document was generated using voice recognition software. It may contain grammatical, syntax or spelling errors.Any formal questions or concerns about the content, text or information contained within the body of this dictation should be directly addressed to the provider for clarification. History of Present Illness History of Present Illness 36-year-old female coming to the hospital with complaints of left-sided chest pa in and shortness of breath Past history history: Bipolar disorder Patient was last seen by me when I had EBUS done on her 10/05/2021 In the ED patient had chest x-ray done which showed left-sided pneumothorax. Pulmonary were consulted for the same Patient said that she was doing well after being discharged from the hospital post EBUS but since the last day or so she started complaining of back pain and left-sided chest pain with difficulty breathing The pain is worse when she takes deep breaths Does complain of cough which is significantly decreased since discharge Denies any hemoptysis. No dizziness, no headache, no nausea or vomiting. No fever or chills. No dysuria, no diarrhea Patient denies any history of rash on the elbows or the knees. No history of kidney stones,there is history of kidney stones in father No personal or family history of sarcoidosis, rheumatoid arthritis, Sjogren's, lupus No Raynaud's phenomena Denies any dry eyes or dry mouth Social history: Non-smoker, no illicit drug use, social alcohol. Works at a desk job. No exposure to chemicals or fumes Pets: Has a dog at home.Also has chickens outside the home and has direct contact with them on a daily basis Allergies: Seasonal. Takes [id number] medications for it Asthma: Family history ofasthma in sisterwho is a non-smoker Lung cancer: History oflung cancer in grandmotherfrom maternal side who was a heavy smoker Allergies Allergy/AdvReac Type Severity Reaction Status Date / Time No Known Allergies Allergy Unknown Verified 10/05/21 09:41 Home Medications Medication Instructions Recorded Confirmed Type lamotrigine 200 mg tablet 200 mg PO HS tab 08/08/19 10/05/21 History lorazepam 1 mg tablet 0.5 - 1 mg PO HS PRN #30 tab 08/08/19 10/05/21 History risperidone 0.5 mg tablet 0.5 mg PO HS tab 08/08/19 10/05/21 History norethindrone 1.5 mg-ethinyl 1 tab PO QAM 05/11/21 10/05/21 History estradiol 30 mcg(21)/iron 75 mg(7) tablet (Dmitry Fe 1.5/30 (28)) famotidine 20 mg tablet 20 mg PO HS #30 tab 08/16/21 10/05/21 Rx pantoprazole 40 mg tablet,delayed 40 mg PO QAM 09/29/21 10/05/21 History release Patient History Medical History Anxiety Asthma Bipolar disorder Depression Esophageal reflux Lymphadenopathy Mild dysplasia of cervix (MIREYA I) Multiple pulmonary nodules Panic disorder Surgical History H/O colonoscopy History of colposcopy with cervical biopsy History of esophagogastroduodenoscopy (EGD) History of open reduction and internal fixation (ORIF) procedure left clavicle fx--hardware in place History of tooth extraction History of wisdom tooth extraction S/P ovarian cystectomy Family History Mother Substance abuse Depression Suicide Father Engel esophagus Hypertension Other Anxiety disorder Arthritis Asthma Bipolar disorder Cataract Colorectal cancer Esophageal reflux Gallbladder disease Heart disease Hypothyroidism Kidney disease Murmur, cardiac No family history of adverse response to anesthesia Ovarian cyst Thyroid disorder Denies family history of Breast cancer Social History Smoking Status: Never smoker Second Hand Exposure: No; Hx Alcohol Use: Yes Alcohol type: wine Alcohol Intake Frequency: 4 or More x per/Week Hx Substance Use: No Preferred Language: Cameroonian Communication Ability: Effective Gem Setter Required: No Beliefs That Will Affect Care: None marital status: Current Living Situation: Spouse and Family Current Living Situation Comment: Lives with and 2 kids current occupational status: employed current occupation: [employer] Feels Safe at Home: Yes caffeine: Yes Dental Care, Regularly: Yes Physical Activity Frequency: 1-2 Times per Week Seatbelt Use: always Sunscreen Use: Yes Assistive Devices: Glasses Review of Systems Review of Systems: All systems reviewed & are unremarkable except as noted in HPI & below Physical Exam Physical Exam: Constitutional: No acute distress HEENT: EOMI, PERRLA Respiratory system: Decreased air entry in the left side, no wheeze, no rhonchi, no crackles CVS: S1-S2 positive, no murmurs or gallops Abdomen: Soft, nontender, nondistended, positive bowel sounds x4 Extremities: +2 pulses bilaterally radialis/ dorsalis pedis, no cyanosis, no edema Neuro: Awake alert oriented x3 Psych: Normal mood and affect G/U: No Marie Skin: no rashes, warm and dry Lymphatic: no cervical or axillary lymphadenopathy Results & Data Results & Data ([facility]) Vital Signs (Past 12 Hours) Vital Signs Temp Pulse Pulse Resp BP BP Pulse Ox 10/09/21 08:47 74 15 111/71 99 10/09/21 08:34 99 10/09/21 08:18 36.1 C L 81 20 112/76 99 Laboratory Results 10/09/21 08:35 10/09/21 09:55 PG Care Time/CCT Total # of Minutes Spent Total Time Spent with Patient: Total time spent is greater than 50% in coordination of care (as documented) at patient's floor/unit and/or counseling patient: Coding Level of Care Code 41191 Initial Inpt Care Lvl 3 Diagnoses Multiple pulmonary nodules R91.8 LAD (lymphadenopathy), mediastinal R59.0 Pneumothorax J93.9
[2021-10-09] MEDS ORDERED: ONDANSETRON INJ 2 MG/ML 2 ML VIAL IV STA (11:53)
[2021-10-09] MEDS ORDERED: MoRPHine SULFATE 4 MG/ML 1 ML CARP\\VIAL IV STA (11:53)
--- NOTE | 2021-10-09 12:40 | Electrocardiogram Report ---
Test Reason : Blood Pressure : / mmHG Vent. Rate : 066 BPM Atrial Rate : 066 BPM P-R Int : 100 ms QRS Dur : 080 ms QT Int : 376 ms P-R-T Axes : 037 046 034 degrees QTc Int : 394 ms Sinus rhythm When compared with ECG of 11-MAY-2021 02:56, QT has shortened Confirmed by Jeremi Richardson ([id number]) on 10/09/2021 12:40:08 PM Referred By: REFERRED SELF Confirmed By:Nate Richardson
[2021-10-09] MEDS ORDERED: ALUMINUM/MAGNESIUM SUSP 30 ML UDC PO PRN (13:24)
[2021-10-09] MEDS ORDERED: MAGNESIUM HYDROXIDE SUSP 30 ML UDC PO PRN (13:24)
[2021-10-09] MEDS ORDERED: POLYETHYLENE (MIRALAX) 17 GM PACK PO PRN (13:24)
[2021-10-09] MEDS ORDERED: ONDANSETRON INJ 2 MG/ML 2 ML VIAL IV PRN (13:24)
[2021-10-09] MEDS ORDERED: ACETAMINOPHEN 325 MG TAB PO PRN (13:24)
[2021-10-09] MEDS ORDERED: MoRPHine SULFATE 2 MG/ML CARP IV PRN (13:24)
[2021-10-09] MEDS ORDERED: HYDROmorphone INJ 0.5 MG/0.5 ML SYR IV PRN ×4 (13:52→17:15)
--- NOTE | 2021-10-09 14:10 | History & Physical Report ---
Date of Service October 09, 2021 Assessment & Plan (1) Pneumothorax: Plan: 36-year-old white female with an underlying past medical history pulmonary nodulescurrently being worked up (s/p bronchoscopy done 10/[address] Boland) presented with left-sided chest pain, shortness of breath and found to have a pneumothorax. -Patient is not hypoxic or requiring supplemental oxygen. She is hemodynamically stable. -CXR showing left-sided pneumothorax with 4.2 cm separation in the pleural space -Pneumothorax likely 2/2 to recent bronchoscopy (although rare, is a potential c omplication) -Is s/p pigtail chest tube by pulmonology with follow-up imaging showing resolution of the pneumothorax -Admitted to medicine service with chest tube management per pulmonology-- spoke with Dr. Boland. Appreciate assistance -We will order scheduled Tylenol with Dilaudid for breakthrough pain as minimal relief with morphine. -Follow-up x-ray to be obtained in the a.m. -Pulmonology following. Appreciate assistance (2) Multiple pulmonary nodules: Plan: -CT of the abdomen and pelvis showing multiple tree-in-bud nodules in the bilateral upper lobes with mediastinal adenopathy -Recent bronchoscopy done 10/05 (Dr. Boland) -? Sarcoidosis -We will need to follow-up with pulmonology as an outpatient (3) Bipolar 1 disorder: Plan: -Continue Lamictal and risperidone as prior to hospitalization along with Ativan (which she takes at home) prn but HOLD FOR SEDATION as can suppress respiratory drive (4) Esophageal reflux: Plan: -Continue Pepcid/Protonix as prior to hospitalization (5) Anxiety: Plan: -Lorazepam as needed (which patient takes at home) but hold for sedation given risk for respiratory suppression Plan: DVT prophylaxis: SCDs Full code Plan of care discussed with Dr. Boland Plan of care to be discussed with attending provider (Dr. Rogel). Further orders as warranted. Admission and Anticipated Discharge Date Admission Date: October 09, 2021 History of Present Illness Chief Complaint: Chest pain X 4 days Primary Care Provider: Mary Dunn MD Ms. Crisostomo is a 36-year-old white female with an underlying past medical history of bipolar recently being worked up for sarcoidosis. She underwent a CT scan back in April that showed mediastinal lymph nodes and tree-in-bud nodularity in the upper lobes bilaterally. She was treated with antibiotics and a repeat CT scan was done recently showing a similar appearance. This prompted a pulmonary referral and she underwent bronchoscopy on 10/05. Since then, she reports left-sided chest pain/pressure and progressing shortness of breath. Pain in her chest is worse when she takes a deep breath. She thought this was part of the "healing process" following her bronchoscopy. This morning, she noticed the pressure/pain radiating into her left neck prompting her to seek medical attention. Patient was hemodynamically stable and not hypoxic. Not requiring any supplemental oxygen. Chest x-ray showed an acute left-sided pneumothorax with pleural separation of 4.2 cm. No intrapulmonary process noted. Patient subsequently had a chest tube placed by pulmonology and will be hospitalized for further evaluation and care. Allergies Allergy/AdvReac Type Severity Reaction Status Date / Time No Known Allergies Allergy Unknown Verified 10/05/21 09:41 Home Medications Medication Instructions Recorded Confirmed Type lamotrigine 200 mg tablet 200 mg PO HS tab 08/08/19 10/05/21 History lorazepam 1 mg tablet 0.5 - 1 mg PO HS PRN #30 tab 08/08/19 10/05/21 History risperidone 0.5 mg tablet 0.5 mg PO HS tab 08/08/19 10/05/21 History norethindrone 1.5 mg-ethinyl 1 tab PO QAM 05/11/21 10/05/21 History estradiol 30 mcg(21)/iron 75 mg(7) tablet (Dmitry Fe 1.5/30 (28)) famotidine 20 mg tablet 20 mg PO HS #30 tab 08/16/21 10/05/21 Rx pantoprazole 40 mg tablet,delayed 40 mg PO QAM 09/29/21 10/05/21 History release Past Med/Surg History Medical History (Updated 10/10/21 @ 08:49 by Froylan Espinoza MD) Anxiety Asthma Bipolar disorder Depression Esophageal reflux Iatrogenic pneumothorax Lymphadenopathy Mild dysplasia of cervix (MIREYA I) Multiple pulmonary nodules Panic disorder Surgical History H/O colonoscopy History of colposcopy with cervical biopsy History of esophagogastroduodenoscopy (EGD) History of open reduction and internal fixation (ORIF) procedure left clavicle fx--hardware in place History of tooth extraction History of wisdom tooth extraction S/P ovarian cystectomy Family History Mother Substance abuse Depression Suicide Father Engel esophagus Hypertension Other Anxiety disorder Arthritis Asthma Bipolar disorder Cataract Colorectal cancer Esophageal reflux Gallbladder disease Heart disease Hypothyroidism Kidney disease Murmur, cardiac No family history of adverse response to anesthesia Ovarian cyst Thyroid disorder Denies family history of Breast cancer Social History Smoking Status: Never smoker Second Hand Exposure: No; Do You Dip or Chew Tobacco: No; Tobacco Cessation Education Requested by Patient: No Hx Alcohol Use: Yes Alcohol type: wine Alcohol Intake Frequency: 4 or More x per/Week Hx Substance Use: No Preferred Language: Wolof Communication Ability: Effective Materials Buyer Required: No Beliefs That Will Affect Care: None marital status: Current Living Situation: Significant Other Current Living Situation Comment: Lives with and 2 kids current occupational status: employed current occupation: [employer] Other Information That Helps Us Care for You: No Feels Safe at Home: Yes Safety Concerns: Feels Safe At This Time caffeine: Yes Dental Care, Regularly: Yes Physical Activity Frequency: 1-2 Times per Week Seatbelt Use: always Sunscreen Use: Yes Assistive Devices: Glasses Review of Systems Review of Systems: All systems reviewed and are unremarkable except as noted in HPI and below Denies fevers, chills, headache, nasal congestion, sore throat, cough, palpitations, orthopnea, PND, abdominal pain, nausea, vomiting, diarrhea, constipation, dysuria, hematuria, frequency, back pain, joint pain or swelling, easy bruising or bleeding, skin lesions or rashes. Physical Exam Physical Exam: General: Sitting upright in her hospital bed. Appears to be in mild discomfort but does not appear toxic or acutely ill. HEENT: Head is AT/NC. Buccal mucosa is moist and pink Neck: No JVD. Negative hepatojugular reflex Cardiac: RRR without M/G/R Lungs: Chest tube noted to left posterior chest wall. Breathing comfortably on ambient air. Normal respiratory effort. Good air exchange throughout bilaterally. Abdomen: Normoactive X4. Soft and nontender in all quadrants. Extremities: No peripheral clubbing cyanosis or edema Neuro: A&O X4. Cranial nerves II through XII are grossly intact. No focal neuro deficits Skin: No obvious skin lesions or rashes Psych: Appropriate affect. Pleasant and cooperative Results & Data Results & Data ([facility]) Vital Signs (Past 12 Hours) Vital Signs Temp Pulse Pulse Resp BP BP Pulse Ox 10/09/21 13:07 36.9 C 62 24 113/71 98 10/09/21 12:00 70 18 114/72 100 10/09/21 11:45 62 16 116/68 100 10/09/21 11:35 64 27 H 116/74 100 10/09/21 11:15 68 19 100 10/09/21 11:00 65 17 109/68 100 10/09/21 10:48 62 15 106/67 100 10/09/21 10:45 67 17 99 10/09/21 10:37 65 19 97/58 L 99 10/09/21 10:31 51 L 15 88/50 L 98 10/09/21 10:30 50 L 15 78/45 L 98 10/09/21 10:29 49 L 20 79/40 L 10/09/21 10:24 56 L 23 103/57 L 95 10/09/21 10:22 54 L 17 79/48 L 92 10/09/21 10:20 47 L 15 71/46 L 95 10/09/21 10:15 89 21 95 10/09/21 10:14 83 17 128/89 97 10/09/21 10:00 79 18 124/78 97 10/09/21 09:45 74 20 98 10/09/21 09:30 81 15 121/87 98 10/09/21 09:15 87 24 99 10/09/21 09:09 71 16 115/70 99 10/09/21 08:47 74 15 111/71 99 10/09/21 08:45 72 20 10/09/21 08:36 76 23 111/71 10/09/21 08:34 99 10/09/21 08:30 79 17 97 10/09/21 08:18 36.1 C L 81 20 112/76 99 Laboratory Results 10/09/21 08:35 10/09/21 09:55 Diagnostic Findings CXR: FINDINGS: The cardiomediastinal and hilar silhouettes are within normal limits. There is a new left-sided pneumothorax with pleural separation of 4.2 cm at the apex and 1.8 cm laterally. The right lung is clear. No pleural effusion, airspace consolidation or overt pulmonary edema. The bones appear grossly intact. Left clavicular ORIF hardware. IMPRESSION: Left-sided pneumothorax with 4.2 cm of pleural separation. CXR following chest tube insertion: FINDINGS: Status post placement of a pigtail catheter projected over the left midlung. There is expansion of the left lung. No definite residual pneumothorax identified. The cardiomediastinal and hilar silhouettes are within normal limits. No pleural effusion or overt pulmonary edema. Bones appear grossly in tact. Left clavicular ORIF hardware. IMPRESSION: Status post placement of a left-sided chest tube. No residual pneumothorax identified. Code Status & VTE Plan VTE Prophylaxis Plan VTE Prophylaxis will be ordered: Yes Supervising Physician Co-Signing Physician Notes Patient seen and examined, chart reviewed, case discussed with Cristela Graff PA-C and I agree with the assessment and plan as above except as otherwise noted. Patient underwent a recent bronchoscopy with biopsy for evaluation of suspected sarcoid. Patient does present with pneumothorax as a complication of this procedure. Has been treated with placement of pigtail catheter with interval resolution of pneumothorax by time of assessment. We will continue to follow with catheter to -20, pulmonary consulted. At bedside assessment patient is alert and oriented, but appears uncomfortable. No shortness of breath. Lung pedraza clear in all pedraza. Patient does have pain at her left flank at the site of catheter insertion, suspect phrenic nerve irritation versus pleurisy. Multimodal pain control with Dilaudid, Tylenol, Toradol. Caution narcotic doses with home/chronic benzo use. Labs and images reviewed PG Care Time/CCT Total # of Minutes Spent Total Time Spent with Patient: Total time spent is greater than 50% in coordination of care (as documented) at patient's floor/unit and/or counseling patient: Coding Level of Care Code 13459 Initial Inpt Care Lvl 2 Diagnoses Pneumothorax J93.9 Multiple pulmonary nodules R91.8 Bipolar 1 disorder F31.9 Esophageal reflux K21.9 Anxiety F41.9
[2021-10-09] MEDS: ACETAMINOPHEN 325 MG TAB PO SCH ×2 (14:26→19:32)
[2021-10-09] MEDS ORDERED: KETOROLAC TROMETHAMINE 15 MG/ML VIAL IV ONE (17:14)
[2021-10-09] MEDS: HYDROmorphone INJ 1 MG/ML SYRINGE IV PRN ×2 (19:37→22:34)
[2021-10-09] MEDS: LORazepam 0.5 MG TAB PO PRN (20:35)
[2021-10-09] MEDS ORDERED: risperiDONE 0.5 MG TABLET PO SCH (21:00)
[2021-10-09] MEDS ORDERED: lamoTRIgine 100 MG TAB PO SCH (21:00)
[2021-10-09] MEDS ORDERED: FAMOTIDINE 20 MG TAB PO SCH (21:00)
[2021-10-10] MEDS: ACETAMINOPHEN 325 MG TAB PO SCH ×3 (00:51→14:24)
[2021-10-10] MEDS: LORazepam 0.5 MG TAB PO PRN (02:25)
[2021-10-10] MEDS: HYDROmorphone INJ 1 MG/ML SYRINGE IV PRN ×3 (02:25→11:45)
[2021-10-10 07:07] LABS: Hemoglobin 11.6 g/dL (12.0-16.0); Mean Corpuscular Hgb Conc 34.1 g/dL (32-36); Mean Corpuscular Volume 93.9 fL (80-100); Mean Platelet Volume 10.4 fL (7.4-10.4); Platelet Count 193 K/uL (130-400); RDW Coefficient of Variation 12.3 % (11.5-14.5); RDW Standard Deviation 41.3 fL (36.4-46.3); Red Blood Count 3.62 M/uL (4.2-5.4); White Blood Count 4.69 K/uL (4.8-10.8)
--- NOTE | 2021-10-10 07:17 | XRay Report ---
XR chest 1V portable CLINICAL HISTORY: f/u COMPARISON STUDY: Chest CT September 15, 2021. Chest radiograph October 09, 2021 at 10:12 AM. FINDINGS: Left sided pleural catheter has been partially withdrawn. No left pneumothorax is identifie d. Left clavicular internal fixation is incidentally noted. Subtle reticulonodular interstitial thick ening within the left upper lung is noted. Cardiac size is normal. IMPRESSION: No pneumothorax. Partially withdrawn left pleural catheter. ACT 112: Negative or not required by law. Electronically signed by: Mack Dunn M.D. 10/10/2021 7:16 AM
[2021-10-10 07:19] LABS: BUN Creatinine Ratio 9.3 (10-20); Calcium 8.8 mg/dl (8.5-10.1); Creatinine Clr Calc Pharmacy 103.6 ml/min; Est GFR (African American) 120.5 ml/min; Magnesium 1.9 mg/dl (1.7-2.4); Potassium 3.7 mmol/L (3.5-5.1)
[2021-10-10] MEDS: KETOROLAC TROMETHAMINE 15 MG/ML VIAL IV SCH ×2 (08:30→14:24)
--- NOTE | 2021-10-10 08:54 | Pulmonology Progress Note ---
Date of Service October 10, 2021 Assessment & Plan (1) Iatrogenic pneumothorax: Plan: Status post EBUS and transbronchial biopsies by Dr. Boland on 10/05/2021. Pigtail placed yesterday at bedside. No tidaling noted in the chest tube drainage kit. Pigtail placed to waterseal and we will repeat x-ray today at 11am. If no recurrence of pneumothorax, will remove the pigtail catheter. (2) LAD (lymphadenopathy), mediastinal: Plan: Possible sarcoid. Will defer to her outpatient song lyricist to treat. PFT 09/30/21 unremarkable. Asymptomatic at this point. Admission and Anticipated Discharge Date Admission Date: October 09, 2021 Subjective Patient seen and examined. She is complaining of chest pain around the pigtail insertion site. No overnight events. She is hemodynamically stable 97% on room air. Review of Systems Review of Systems: All systems reviewed & are unremarkable except as noted in HPI & below Physical Exam Physical Exam: Constitutional: Patient appears to be of their stated age. Patient is in no apparent distress. Patient is well-developed. Eyes: Pupils are equal round and reactive to light. Conjunctivae are normal. Anicteric sclera. Ears nose, mouth and throat: No focal trauma. Neck: Trachea is midline. Visual inspection is normal. Respiratory: Clear to auscultation bilaterally. No use of accessory muscles. No significant clubbing noted. Left mid axillary pigtail in place. Cardiovascular: Regular rate and rhythm. No murmurs. No edema. Gastrointestinal: Normal bowel sounds, soft, nontender and nondistended. No hepatosplenomegaly noted. Musculoskeletal: No cyanosis. Patient is able to move all extremities. Skin: No rashes, warm dry and intact. Neurologic: No obvious focal neurological deficits seen. Psychiatric: Alert and oriented x3 with a euthymic affect. Results & Data Results & Data ([facility]) Vital Signs (Past 12 Hours) Vital Signs Temp Pulse Pulse Resp BP Pulse Ox Pulse Ox 10/10/21 08:00 66 10/10/21 07:56 97 10/10/21 07:44 66 15 110/67 97 10/10/21 02:39 36.7 C 55 L 16 96/59 L 97 10/09/21 23:20 64 10/09/21 22:58 36.6 C 62 16 111/66 97 PG Care Time/CCT Total # of Minutes Spent Total Time Spent with Patient: Total time spent is greater than 50% in coordination of care (as documented) at patient's floor/unit and/or counseling patient: Coding Level of Care Code 22467 Subseq Hosp Care Lvl 2 Diagnoses Iatrogenic pneumothorax J95.811 LAD (lymphadenopathy), mediastinal R59.0
[2021-10-10] MEDS ORDERED: PANTOprazole 40 MG TAB PO SCH (09:00)
--- NOTE | 2021-10-10 09:55 | XRay Report ---
XR chest 1V portable CLINICAL HISTORY: chest tube on waterseal COMPARISON STUDY: Chest radiograph October 10, 2021 at 6:23 AM. FINDINGS: Left pleural catheter remains in place. There is no pneumothorax. Reticulonodular interstit ial thickening within the left upper lung is noted. Left hilar prominence is noted. Cardiac size is n ormal. Left clavicular internal fixation is incidentally noted. IMPRESSION: No pneumothorax. Left pleural catheter remains in place. ACT 112: Negative or not required by law. Electronically signed by: Mack Dunn M.D. 10/10/2021 9:54 AM
--- NOTE | 2021-10-10 12:53 | Procedure Note ---
Procedure Note Date of Service October 10, 2021 Note INDICATION: Pigtail catheter removal due to resolution of pneumothorax PROCEDURE: Remove pigtail catheter from left mid axillary region DATE: 10/10/2021 TIME: 11:55 AM PROVIDER: Nikolai Garcia PA-C PROCEDURE SUMMARY: Patient was seen prior to the procedure and was complaining of significant pain. 1 mg of IV Dilaudid was administered per standing as needed order. Pleur-evac was examined. There was no fluid in the Pleur-evac. There was also no evidence of air leak. Patient had been placed on waterseal earlier today. Repeat chest x-ray after change to waterseal showed resolution of pneumothorax. Patient's vital signs were within normal limits. The catheter site was examined and there was no bleeding or problems with the adhesion of the dressing. Patient was reclined in bed and placed on the right lateral recumbent position. The tape and gauze pads were first removed. There is no evidence of any bleeding or discharge of pleural fluid. The pigtail catheter appeared to be in place. The skater retention device was then carefully removed being sure not to disrupt the location of the pigtail catheter. The locking mechanism for the string for the pigtail was then unlocked. The string was checked for mobility. The pigtail catheter was then easily removed. The patient experienced no pain and no discharge of fluid or blood. A drainage pad as well as 4 x 4's were then placed over the insertion site and secured with Medipore tape. Dr. Rogel from the hospitalist team was notified and will see the patient again later this afternoon. From a pulmonary perspective, patient can most likely be discharged home. The patient was instructed to keep the area dry and told that she could shower tomorrow and then cover the insertion site with Band-Aids. She was also told that she should not immerse the insertion site in water including bath tub, hot tub, freestanding water. The patient tolerated the procedure well with no shortness of breath, no hypotension, no increase in heart rate, and no other acute symptoms. Coding
--- NOTE | 2021-10-10 12:59 | Discharge Summary ---
Date of Service October 10, 2021 Principal Diagnosis Iatrogenic pneumothorax Discharge Exam General: A&Ox3. NAD. Cooperative. Appears uncomfortable. HEENT: Atraumatic, normocephalic. Vision and hearing grossly intact. Pulm: CTAB A&P. -wheezes, -rales, -rhonchi. Symmetrical chest rise. No increase in work of breathing. No respiratory distress. No absent lung pedraza on posterior auscultation. Catheter removed, overlying dressing in place C/D/I. Mildly tender to palpation overlying prior pigtail site. Cardiac: RRR, -mrg. Radial pulses intact and symmetrical. Abdominal: Nontender, nondistended, soft. BS present. Discharge Data Allergies Allergy/AdvReac Type Severity Reaction Status Date / Time No Known Allergies Allergy Unknown Verified 10/05/21 09:41 Consultations 10/09/21 09:54 Consult Pulmonology Stat 10/09/21 10:59 ED Decision to Admit Stat Ordered Studies 10/09/21 09:54 US point of care ultrasound Stat Hospital Course (1) Pneumothorax: 36-year-old white female with an underlying past medical history pulmonary nodulescurrently being worked up (s/p bronchoscopy done 10/[address] Boland) presented with left-sided chest pain, shortness of breath and found to have a pneumothorax. -Patient was not and did not require supplemental oxygen. She remained hemodynamically stable. -CXR showing left-sided pneumothorax with 4.2 cm separation in the pleural space -Pneumothorax likely 2/2 to recent bronchoscopy (although rare, is a potential complication) -Is s/p pigtail chest tube by pulmonology with follow-up imaging showing resolution of the pneumothorax -Admitted to medicine service with chest tube management per pulmonology Remained stable, catheter was clamped, patient did not have any interval worsening or return of pneumothorax Catheter removed by pulmonology, patient recommended for discharge home with outpatient follow-up Multimodal pain control with Tylenol, Toradol, and Dilaudid for breakthrough pain was used during admission (2) Multiple pulmonary nodules: -CT of the abdomen and pelvis showing multiple tree-in-bud nodules in the bilateral upper lobes with mediastinal adenopathy -Recent bronchoscopy done 10/05 (Dr. Boland) -Biopsy results as below, patient to follow-up with pulmonology as outpatient Biopsy results became available day of discharge This patient has non-caseating non-epithelioid granulomas within the lung parenchyma and mediastinal lymph nodes. A bronchial lavage specimen also shows some plant hair (trichrome) material of unknown etiology. Main considerations include infectious, foreign-body type reactions to inhaled material, rheumatoid nodules, and sarcoidosis. While I do not favor sarcoidosis given the morphologic appearance of the granulomas, I cannot entirely exclude it. Clinical correlation required CD163: highlights increased histiocytes and the granulomas AFB: negative for overt acid-fast bacilli GMS: negative for overt fungal organisms PAS: negative for overt fungal organisms The lavage specimen shows numerous scattered needle-shaped material of varying sizes throughout the specimen. These are pointed at one end and blunted at the other and appear most consistent with plant hair (trichrome). They appear too numerous to be artifact and it seems likely to have come from the patient's airways though I cannot be entirely certain. Please review the biopsy report ([id number]) for additional discussion. This case was reviewed intra- departmentally with agreement to the above diagnosis. Lymph node, 10R, endobronchial ultrasound fine needle aspiration: - Scattered granulomas present - Negative for malignancy - Numerous scattered granulomas - Negative for malignancy Comment: A small cluster of fungus is seen on the cell block, though this appears to be [place] and is likely from oral contamination (3) Bipolar 1 disorder: -Continue Lamictal and risperidone as prior to hospitalization along with Ativan (which she takes at home) prn but HOLD FOR SEDATION as can suppress respiratory drive (4) Esophageal reflux: -Continue Pepcid/Protonix as prior to hospitalization (5) Anxiety: -Lorazepam as needed (which patient takes at home) but hold for sedation given risk for respiratory suppression Total Time Total Time Spent Total Time Spent (In Minutes): Time spend day of discharge 60 minutes including direct patient care, documentation, review of labs and images, and coordination of care. Discharge Plan Discharge Items Patient Disposition: Home - Self-Care Reason For Visit: PNEUMOTHORAX Discharge Diagnosis: Pneumothorax Activity: Per Instructions section Non-emergency contact: Primary Care Provider and Supervisor Grips Call non-emergency contact if: you have any medication questions, your symptoms worsen and your pain is not controlled Follow-up/Referrals: Mary Dunn MD [Primary Care Provider] - Tresa Boland MD [Physician] - Diet: Regular Addtl Attending Provider Instructions: You are seen in the hospital for pain and shortness of breath after you had a bronchoscopy with biopsy. On evaluation you were found to have air outside of the lung tissue in the space surrounding the lung, a condition called pneumothorax. A pigtail catheter was placed to allow air to be drained from the space. Follow-up imaging showed resolution of this pneumothorax. You did ex perience pain which can come from phrenic nerve irritation and irritation of the lining of the lung called pleurisy. Your catheter was clamped, and you did not show evidence of reaccumulation of air and so this was removed by pulmonology. Her breathing remained stable, and it was recommended that you be discharged home with anti-inflammatories for pain control and follow-up to your primary care provider and pulmonology as an outpatient. You may take ibuprofen 600 mg every 4-6 hours as needed for pain. Anti- inflammatories including NSAID can be tough on the kidneys, heart, and stomach. You may take Pepcid/famotidine 20mg twice daily to help prevent stomach irritation while taking ibuprofen. If you continue to have severe, worsening pain, or new or concerning symptoms please seek prompt medical attention for reevaluation. Follow-up appointment is being scheduled for you with pulmonology. If you do not receive a call to confirm your appointment within 48 hours please call their office at the number above. A follow-up appointments being scheduled for you with your primary care provider. You should be seen within 1 week. If you do not receive a call to confirm this appointment within 48 hours, please call her office at the number above. If you develop any new or worsening symptoms including fever, chills, sweats, chest pain, chest pressure, difficulty breathing, uncontrolled nausea/vomiting, rash, wheezing, passing out or nearly passing out, bleeding, black/bloody bowel movements, or other new or concerning symptoms please call your primary care physician, or call 911 for re-evaluation in the emergency department if you are very concerned. Pending Studies at Discharge: No Stand-Alone Forms: [employer], Smoking Cessation Medications and DC Order Prescriptions: Continued famotidine 20 mg tablet 20 mg PO HS Qty: 30 RF: 2 lamotrigine 200 mg tablet 200 mg PO HS RF: 0 lorazepam 1 mg tablet 0.5 - 1 mg PO HS PRN (Reason: Anxiety) Qty: 30 RF: 0 risperidone 0.5 mg tablet 0.5 mg PO HS RF: 0 norethindrone-e.estradiol-iron [Dmitry Fe 1.5/30 (28)] 1.5 mg-30 mcg (21)/75 mg (7) tablet 1 tab PO QAM RF: 0 pantoprazole 40 mg tablet,delayed release (DR/EC) 40 mg PO QAM RF: 0 Discharge Orders: Discharge Order (Routine); Ordered 10/10/21 Ordered By: Alec Rogel Admission Data Admit Date/Time: 10/09/21 11:40 Attending Provider: Alec Rogel Admit Provider: Alec Rogel Primary Care Provider: Mary Dunn Other Providers: Alec Rogel ; Tresa Boland Other Interventions: Discharge Summary Assessment (RN) Last Done: 10/10/21 16:03 Coding Level of Care Code D/C DAY MANAGEMENT >30 MINS Diagnoses Pneumothorax J95.811 Pneumothorax type: postprocedural Multiple pulmonary nodules R91.8 Bipolar 1 disorder F31.9 Esophageal reflux K21.9 Anxiety F41.9
== END 2021-10-10 17:36 | disposition home or self-care (01) | DRG 201 ==
LOC: ED 08:15 → 2S 11:40